=== PATIENT | female | born 1950 ===

== ENCOUNTER 2018-02-03 01:58 | Observation (INO) | payer MEDICARE, OTHER ==
[2017-12-29 08:21] LABS: PLATELET COUNT, AUTOMATED 256 K/uL (150-450)
--- NOTE | 2017-12-29 08:49 | EKG ---
FACILITY: [facility] PATIENT NAME: CLINT MARLOW : [id number] MR: [id number] V: [id number] EXAM DATE: ORDERING PHYSICIAN: MARYLOU WILLIAM TECHNOLOGIST: HAIELE Foley Reason : PRE-OP KNEE Blood Pressure : / mmHG Vent. Rate : 070 BPM Atrial Rate : 070 BPM P-R Int : 162 ms QRS Dur : 084 ms QT Int : 392 ms P-R-T Axes : 069 023 035 degrees QTc Int : 423 ms Normal sinus rhythm Normal ECG When compared with ECG of 25-OCT-2016 08:42, No significant change was found Confirmed by TOM STROUD ([id number]) on 12/29/2017 2:54:11 PM Referred By: STEWART Confirmed By:TOM STROUD
--- NOTE | 2018-01-29 15:19 | HISTORY AND PHYSICAL ---
DATE OF ADMISSION: February 03, 2018 IDENTIFICATION AND CHIEF COMPLAINT Melissa is a 67-year-old woman with chief complaint of right knee pain. HISTORY OF PRESENT ILLNESS Patient has a long-standing history of knee arthritis, progressively painful and debilitating, refractory to conservative care. Surgery is indicated to relieve symptoms after failure of nonoperative measures. PAST MEDICAL HISTORY 1. Hypothyroidism. 2. Hypertension. ALLERGIES She is allergic to NYQUIL. CURRENT MEDICATIONS 1. Levothyroxine 88 mcg p.o. q. day. 2. Losartan 25 mg p.o. q. day. 3. Vitamin D. PAST SURGICAL HISTORY Rotator cuff operation. FAMILY HISTORY Notable for mother with diabetes. SOCIAL HISTORY Negative for tobacco and alcohol use. REVIEW OF SYSTEMS Otherwise negative. PHYSICAL EXAMINATION GENERAL: This is a healthy female. HEENT: She is normocephalic, atraumatic. NECK: Supple. LUNGS: Clear. HEART: Regular. ABDOMEN: Soft. ORTHOPEDIC: The right knee has an effusion. Crepitus is noted. She is stiff at the end range. Ligament stability is good. Extensor function intact. Skin is in good condition. Calves nontender. Neurovascular function intact. LABORATORY DATA Radiographs demonstrate end-stage arthritis. ASSESSMENT Right knee end-stage degenerative joint disease, progressively painful and debilitating, refractory to conservative care. PLAN Per patient's request, will proceed with total knee arthroplasty. Concomitant injection of the left knee to mitigate symptoms to facilitate rehab will be performed at the same surgical setting. Nature of the procedure, risks, benefits, and the anticipated rehabilitative course reviewed. Risks of the procedure include, but are not limited to , major medical or anesthetic complication, infection, neurovascular injury, blood transfusion, stiffness, scarring, fracture, tendon rupture, instability, implant loosening, migration, or failure, persistent or recurrent pain, need for additional surgery, and other unforeseen. She understands and wishes to proceed. Signed permit is placed in the chart. No guarantees are given or implied. ROSALVA
[2018-02-02 14:04] LABS: INR 0.99
[2018-02-03] VITALS (16 sets, daily range): BP systolic 110–143; BP diastolic 63–83
[~2018-02-03] VITALS: Ht 170.2 cm; Wt 86.6 kg
[~2018-02-03 01:58] MED LIST: LEVO75TA73 PO; LOSA25TA52 PO; MV-M1TAB19 PO
[2018-02-03] MEDS ORDERED: ACETAMINOPHEN 500 MG TAB PO ONE (07:40)
[2018-02-03] MEDS ORDERED: fentaNYL CITR 100 MCG/2 ML AMP ONE (07:57)
[2018-02-03] MEDS ORDERED: PROPOFOL EMUL(*) 10MG/ML 20 ML 20 ML ONE (07:58)
[2018-02-03] MEDS ORDERED: LIDOCAINE MPF 1% 5 ML VIAL ONE (07:58)
[2018-02-03] MEDS ORDERED: ONDANSETRON 4 MG/2 ML VIAL ONE (07:58)
[2018-02-03] MEDS ORDERED: DEXAMETHASONE SOD 4 MG/ML VIAL ONE (07:58)
[2018-02-03] MEDS ORDERED: KETAMINE HCL 200 MG/20 ML MDV ONE (08:38)
[2018-02-03] MEDS ORDERED: BUPIVACAINE 0.5% INJ 50ML VIAL INFIL ONE ×2 (08:52→09:17)
[2018-02-03] MEDS ORDERED: TRIAMCINOLONE ONE (08:52)
[2018-02-03] MEDS ORDERED: TRANEXAMIC AC 1000 MG/10ML SDV 1,000 MG in DEXTROSE 5% 50 ML BAG 50 ML IV ONE (09:00)
[2018-02-03] MEDS ORDERED: ceFAZolin(*) 2GM/D5W 50ML 50 ML IVPB ONE (09:00)
[2018-02-03] MEDS ORDERED: NORMOSOL R SOLN(*) 1000 ML BAG 1,000 ML IV PRN ×2 (09:00→12:50)
[2018-02-03] MEDS ORDERED: LIDOCAINE/SOD BICARB 8.4% SYR ID ONE (09:00)
[2018-02-03] MEDS ORDERED: MIDAZOLAM 2 MG/2 ML VIAL IVP PRN (09:00)
[2018-02-03] MEDS ORDERED: FAMOTIDINE 20 MG TAB PO ONE (09:00)
[2018-02-03] MEDS ORDERED: cloNIDine EPIDUR INJ 100MCG/ML 40 MCG, ROPIVACAINE 0.5% 20 ML VIAL 25 ML, EPINEPHrine H... INJ ONE (09:00)
[2018-02-03] MEDS ORDERED: TRIAMCINOLONE ACE(*) 40 MG/ML 1 ML ONE (09:17)
[2018-02-03] MEDS ORDERED: VANCOMYCIN 1 GM VIAL ONE (09:48)
[2018-02-03] MEDS ORDERED: ACETAMINOPHEN 325 MG TAB PO PRN (12:50)
[2018-02-03] MEDS ORDERED: ZOLPIDEM TARTRATE 5 MG TAB PO PRN (12:50)
[2018-02-03] MEDS ORDERED: PROMETHAZINE 25 MG/ML 1 ML AMP IVP PRN (12:50)
[2018-02-03] MEDS ORDERED: MAGNESIUM HYDROXIDE* 30ML UDCP PO PRN (12:50)
[2018-02-03] MEDS ORDERED: FLUSH 10 ML SYR IVP PRN (12:50)
[2018-02-03] MEDS ORDERED: diphenhydrAMINE 25 MG CAP PO PRN (12:50)
[2018-02-03] MEDS ORDERED: BENZOCAINE/MENTHOL 1 EACH LOZG PO PRN (12:50)
[2018-02-03] MEDS ORDERED: BISACODYL 10 MG SUPP PR PRN (12:50)
[2018-02-03] MEDS ORDERED: diphenhydrAMINE 50 MG/ML VIAL IVP PRN (12:50)
[2018-02-03] MEDS: APAP/HYDROCODONE 325/7.5 TAB PO PRN ×3 (14:07→22:53)
--- NOTE | 2018-02-03 14:10 | RADIOLOGY IMAGING REPORT ---
FACILITY: [facility] PATIENT NAME: Melissa Fisher : 1950 MR: [id number] V: [id number] EXAM DATE: ORDERING PHYSICIAN: MARYLOU WILLIAM TECHNOLOGIST: Location: [facility] [place] Patient: Melissa Fisher : 1950 Visit/Account:[id number] Date of Sevice: 02/03/2018 KNEE LIMITED RIGHT COMPARISON: None. HISTORY: POST R TKA TECHNIQUE: 2 views of the right knee FINDINGS: BONES: Hardware components of a right total knee arthroplasty are present in anatomic alignment with out evidence of acute fracture or other immediate postoperative complication. SOFT TISSUES: Soft tissue gas related to recent surgery. Skin syed anteriorly. EFFUSION: None suggested. OTHER: Negative. IMPRESSION: Right total knee arthroplasty with recent postoperative changes, without appreciable complications. Report Dictated By: Atif Feliz at 02/03/2018 2:05 PM Report E-Signed By: Atif Feliz at 02/03/2018 2:05 PM WSN:[email or web address]
--- NOTE | 2018-02-03 14:18 | LEVENE TKA ---
EVENT DATE: February 03, 2018 SURGEON: Romaine Chavira MD ANESTHESIOLOGIST: [*] ANESTHESIA: General plus spinal. STUDENT SERVICES DIRECTOR: Chang Morin PA-C PREOPERATIVE DIAGNOSIS Right knee degenerative joint disease. POSTOPERATIVE DIAGNOSIS Right knee degenerative joint disease. PROCEDURE PERFORMED Right total knee arthroplasty. ESTIMATED BLOOD LOSS Minimal. DRAINS None.. SPECIMENS None. COMPLICATIONS None apparent TOURNIQUET TIME 44 minutes. IMPLANTS USED Ladan Triathlon knee system, a size 5 PS femur, a 4 standard tibial baseplate, 33 mm universal symmetric all polyethylene patella button, 13 mm PS tibial tray liner polyethylene X3.. INDICATIONS Melissa is a 67-woman with intractable pain related to end-stage knee arthritis. Surgery is indicated to relieve symptoms after failure of nonoperative measures. DESCRIPTION OF PROCEDURE The patient was taken to the operating room and placed supine on the operating table. A spinal block was administered by the anesthesiologist. General anesthesia was induced. Antibiotics were administered IV. The right lower extremity was prepped and draped in the usual sterile fashion for knee arthroplasty. The limb was exsanguinated with an Esmarch bandage. The tourniquet was inflated to 275 mmHg. A midline longitudinal incision was made and carried down through the skin and subcutaneous tissue to the extensor mechanism. A full-thickness flap was developed far enough medially to allow medial parapatellar arthrotomy to be performed. The patella was everted. The knee was brought into a flexed position. The fat pad, anterior horns of the menisci and cruciate ligaments were debrided. Subperiosteal capsule release was performed 1 cm circumferentially around the upper plateau to start to balance the knee. A step drill was used to enter the distal femur. A 10-inch long alignment guide was used to engage the isthmus. Cut was set for 6 degrees of valgus relative to anatomic axis. A 10 mm resection block was applied and pinned. Cut was made with an oscillating saw. The patient had significant lateral femoral condyle hypoplasia so the transepicondylar axis was marked and used to determine appropriate rotational alignment. Posterior condyles cannot be used in this circumstance. The size 5 was optimal without risk of notching. Four-in-one cutting block was applied. Anterior, posterior, posterior chamfer and anterior chamfer cuts were made respectively. A PS block was applied and centered mediolateral and the bone was removed from the box. The trial femur had adequate fit. Attention was turned to tibial preparation. The extramedullary guide was applied and positioned for varus, valgus, posterior slope and rotation. This was set to resect 2 mm from the deficient lateral tibial plateau and dropped down another 1 to 2 millimeters to ensure an adequate cut. The block was pinned. Extramedullary alignment check was made and the cut was made with an oscillating saw. All osteophytes were removed. In order to balance the gaps sufficiently, the popliteus is recessed off of its hiatal attachment on the femur and the IT bands released subperiosteally off Gerdy's tubercle and a bit of the posterior lateral capsule stripped with a Maldonado off the back of the femur and this creates balanced and symmetric gaps. A size 4 baseplate provides optimum bony coverage without soft tissue overhang. This was inserted along with a trial liner and trial femur and the knee was brought to extension. The patella was taken from a starting thickness of 22 to a residual of 14 with a patellar clamp and an oscillating saw. A 33 provided optimal bony coverage without soft tissue overhang. The lug holes were drilled. The patella tracts nicely with a no-touch technique. Final tibial preparation consisted of ensuring appropriate rotational and translational position of the component. The box was reamed and the fin was punched. All bony surfaces were lavaged. A mix of polymethylmethacrylate was made and the components were cemented in a single stage. When the cement was fully polymerized, the tourniquet was deflated and hemostasis was assured. The wounds were copiously lavaged. The 13 fills up the gap ideally, allowing the knee to drop to full extension without hyperextension, providing optimal soft tissue tension and stability. The tray was lavaged and dried and the actual liner was locked into the baseplate. The joint was reduced and the arthrotomy was closed in flexion with #2 Ethibond, dermis with 3-0 Vicryl and the skin with surgical syed. Xeroform was applied followed by a dry, sterile dressing and a compression wrap. The patient was awakened from the anesthesia and taken to the recovery room in stable condition, having tolerated the procedure well. Plan is for standard TKA rehab protocol. ROSALVA
--- NOTE | 2018-02-03 14:26 | Hospitalist Consultation ---
History of Present Illness Requesting Physician Dr. Chavira Reason for Consult Medical Management Chief Complaint s/p right total knee replacement History of Present Illness She was admitted s/p right total knee replacement. It is reported the surgery went well and without complication. History Problems: (1) Hypothyroidism Status: Chronic (2) Hypertension Status: Chronic Home Meds Reported Medications Mv-Mn/Iron/Fa/Herbal Cmplx#190 (VITAMIN D3 COMPLETE CAPLET) 1 Each Tablet, 1 EACH PO DAILY 01/26/18 Losartan Potassium (LOSARTAN POTASSIUM) 25 Mg Tablet, 25 MG PO QDAY 01/26/18 Levothyroxine Sodium (LEVOTHYROXINE SODIUM) 75 Mcg Tablet, 75 MCG PO QDAY, TAB 01/26/18 Allergies: Coded Allergies: dextromethorphan (Verified Allergy, Mild, INTERNAL ITCH, 01/26/18) doxylamine (Verified Allergy, Mild, INTERNAL ITCH, 01/26/18) pseudoephedrine (Verified Allergy, Mild, INTERNAL ITCH, 01/26/18) Uncoded Allergies: NARCOTICS (Adverse Reaction, Mild, STOMACH ISSUES, 01/26/18) Patient History: FH: Parkinson's disease FATHER FH: diabetes mellitus MOTHER Hx Smoking: Yes Smoking Status: Former Smoker When Quit Tobacco?: SMOKED FOR 5 YRS, QUIT IN Caffeine Intake: Coffee Caffeine/Cups Per Day: 3 Hx Alcohol Use: Yes Hx Substance Use Disorder: No Social Drug Use: Never Review of Systems All Systems Reviewed/Normal: Yes, Except as Noted Exam Vital Signs Vital Signs Date Time Temp Pulse Resp B/P (MAP) Pulse Ox O2 Delivery O2 Flow Rate FiO2 02/03/18 13:40 87 12 133/79 (97) 97 Nasal Cannula 1.0 02/03/18 07:41 97.2 General Appearance: Alert, Awake, No Acute Distress, Afebrile Neuro: No Gross deficits Cardiovascular: Regular Rate and Rhythm Respiratory: No Respiratory Distress, Clear to Auscultation GI: Abd Soft and Non-Tender Psych: Alert & Oriented X3, Appropriate Mood & Affect Assessment and Plan Problems: (1) Status post total right knee replacement Status: Acute Assessment & Plan: She will be placed on Aspirin for DVT prophylaxis. She has no history of DVT or PE. She does report sensitivity to NSAIDs with her stomach. She will be started on Protonix to help with ASA. (2) Hypertension Status: Chronic Assessment & Plan: She is on chronic treatment with Losartan. This has been restarted with hold parameters. (3) Hypothyroidism Status: Chronic Assessment & Plan: She is on chronic treatment with Levothyroxine. Venous Thromboembolism Antithrombotics Is Pt On Any Antithrombotics?: No Problem Qualifiers (1) Hypertension: Hypertension type: essential hypertension Qualified Codes: I10 - Essential (primary) hypertension IAN VARGAS DESKTOP SUPPORT TECHNICIAN Feb 03, 2018 14:26
[2018-02-03] MEDS ORDERED: NS(*) 0.9% 250 ML BAG 250 ML IV SCH (15:15)
[2018-02-03] MEDS: CELECOXIB 200 MG CAP PO SCH (17:20)
[2018-02-03] MEDS: ceFAZolin(*) 1 GM VIAL 1 GM in NS(*) 0.9% 100 ML ADDVANT BAG 100 ML IVPB SCH (17:25)
[2018-02-03] MEDS: DIAZEPAM 5 MG TAB PO PRN (20:51)
[2018-02-04] MEDS: ceFAZolin(*) 1 GM VIAL 1 GM in NS(*) 0.9% 100 ML ADDVANT BAG 100 ML IVPB SCH ×2 (01:52→09:51)
[2018-02-04 01:55] VITALS: BP 105/66
[2018-02-04] MEDS: APAP/HYDROCODONE 325/7.5 TAB PO PRN ×4 (03:11→23:37)
[2018-02-04] MEDS ORDERED: CELECOXIB 200 MG CAP PO ONE ×2 (05:20→07:25)
[2018-02-04] MEDS ORDERED: PREGABALIN 75 MG CAPSULE PO ONE (05:20)
[2018-02-04] MEDS: DIAZEPAM 5 MG TAB PO PRN ×3 (06:08→21:45)
[2018-02-04] MEDS: LEVOTHYROXINE SOD 0.075 MG TAB PO SCH (06:08)
[2018-02-04 07:16] VITALS: BP 101/65
[2018-02-04] MEDS ORDERED: PREGABALIN 150 MG CAPSULE PO ONE (07:25)
[2018-02-04] MEDS: PANTOPRAZOLE SOD 40 MG TABEC PO SCH (08:28)
[2018-02-04] MEDS: CELECOXIB 200 MG CAP PO SCH ×2 (08:28→17:00)
[2018-02-04] MEDS: LOSARTAN POTASSIUM 50 MG TAB PO SCH (08:28)
[2018-02-04] MEDS: ASPIRIN 325 MG TAB PO SCH (08:28)
[2018-02-04 11:08] VITALS: BP 120/64
--- NOTE | 2018-02-04 11:10 | Hospitalist Progress Note ---
Subjective Progress Notes Subjective She has no complaints this morning. She had no acute events overnight. Patient Complains of: Cardiovascular: No: Chest Pain Respiratory: No: Shortness of Breath Physical Exam Vital Signs Date Time Temp Pulse Resp B/P (MAP) Pulse Ox O2 Delivery O2 Flow Rate FiO2 02/04/18 07:30 90 Room Air 0.5 02/04/18 07:16 98.1 89 16 101/65 (77) Intake and Output 02/04/18 07:00 Intake Total 3109 ml Balance 3109 ml Intake Oral 699 ml IV Total 2110 ml Blood Product 300 ml # Voids 2 General Appearance: Alert, Awake, No Acute Distress, Afebrile Neuro: No Gross deficits Cardiovascular: Regular Rate and Rhythm Respiratory: No Respiratory Distress, Clear to Auscultation Psych: Alert & Oriented X3, Appropriate Mood & Affect Assessment and Plan Problems: (1) Status post total right knee replacement Status: Acute Assessment & Plan: She will be placed on Aspirin for DVT prophylaxis. She has no history of DVT or PE. She does report sensitivity to NSAIDs with her stomach. She will be started on Protonix to help with ASA. (2) Hypertension Status: Chronic Assessment & Plan: She is on chronic treatment with Losartan. This has been restarted with hold parameters. (3) Hypothyroidism Status: Chronic Assessment & Plan: She is on chronic treatment with Levothyroxine. Exam Sepsis Risk: No Definite Risk Problem Qualifiers (1) Hypertension: Hypertension type: essential hypertension Qualified Codes: I10 - Essential (primary) hypertension IAN VARGASP Feb 04, 2018 11:10
[2018-02-04 13:18] VITALS: Ht 170.2 cm; Wt 86.6 kg
[2018-02-04 14:32] VITALS: BP 116/69
[2018-02-04 19:10] VITALS: BP 119/75
[2018-02-04 23:37] VITALS: BP 122/65
[2018-02-05] MEDS: APAP/HYDROCODONE 325/7.5 TAB PO PRN (03:51)
[2018-02-05 03:52] VITALS: BP 109/61
[2018-02-05] MEDS: LEVOTHYROXINE SOD 0.075 MG TAB PO SCH (05:29)
[2018-02-05] MEDS ORDERED: HYDR-654 PO (07:30)
[2018-02-05 08:05] VITALS: BP 124/79
[2018-02-05] MEDS: LOSARTAN POTASSIUM 50 MG TAB PO SCH (08:32)
[2018-02-05] MEDS: ASPIRIN 325 MG TAB PO SCH (08:32)
[2018-02-05] MEDS: PANTOPRAZOLE SOD 40 MG TABEC PO SCH (08:32)
[2018-02-05] MEDS: CELECOXIB 200 MG CAP PO SCH (08:32)
[2018-02-05] MEDS ORDERED: ASPI-757 PO (08:57)
--- NOTE | 2018-02-05 10:02 | Hospitalist Progress Note ---
Subjective Progress Notes Subjective She has no complaints this morning. She had no acute events overnight. Patient Complains of: Cardiovascular: No: Chest Pain Respiratory: No: Shortness of Breath Physical Exam Vital Signs Date Time Temp Pulse Resp B/P (MAP) Pulse Ox O2 Delivery O2 Flow Rate FiO2 02/05/18 08:12 91 Room Air 02/05/18 08:05 97.7 72 16 124/79 (94) 0.5 Intake and Output 02/05/18 07:00 Intake Total 1662 ml Balance 1662 ml Intake Oral 1562 ml IV Total 100 ml # Voids 5 General Appearance: Alert, Awake, No Acute Distress, Afebrile Neuro: No Gross deficits Cardiovascular: Regular Rate and Rhythm Respiratory: No Respiratory Distress, Clear to Auscultation Psych: Alert & Oriented X3, Appropriate Mood & Affect Assessment and Plan Problems: (1) Status post total right knee replacement Status: Acute Assessment & Plan: She will be placed on Aspirin for DVT prophylaxis. She has no history of DVT or PE. She does report sensitivity to NSAIDs with her stomach. She will be started on Protonix to help with ASA. (2) Hypertension Status: Chronic Assessment & Plan: She is on chronic treatment with Losartan. This has been restarted with hold parameters. (3) Hypothyroidism Status: Chronic Assessment & Plan: She is on chronic treatment with Levothyroxine. Exam Sepsis Risk: No Definite Risk Problem Qualifiers (1) Hypertension: Hypertension type: essential hypertension Qualified Codes: I10 - Essential (primary) hypertension IAN VARGAS MEDIA DEVELOPER Feb 05, 2018 10:02
== END 2018-02-05 07:35 | disposition home or self-care (01) ==
LOC: OR 01:58 → MED 13:40
PROVIDERS: ADMIT Orthopaedic Surgery; ATTEND Orthopaedic Surgery
DX: M17.11 Unilateral primary osteoarthritis, right knee (principal); I10 Essential (primary) hypertension; E03.9 Hypothyroidism, unspecified
CPT/HCPCS: 27447; 36415; 73560; 81001; 84443; 85025; 85610; 86850; 86900; 86901; 93005; 97116; 97161; 97530; A9270; C1713; C1776; G0378; J0171; J0690; J0735; J1100; J1885; J2001; J2250; J2405; J2704; J2795; J3010; J3301; J3370; J3490; J7050; J7060; 82040; 82247; 82310; 82374; 82435; 82565; 82947; 84075; 84132; 84155; 84295; 84450; 84460; 84520

== ENCOUNTER → 2018-02-09 | Outpatient (CLI) | payer MEDICARE, OTHER ==
[2018-02-04 13:18] VITALS: BMI 29.9
[~2018-02-09] MED LIST changes: +ASPI-757 PO; +HYDR-654 PO
--- NOTE | 2018-02-09 18:40 | RADIOLOGY IMAGING REPORT ---
FACILITY: [facility] - [place] PATIENT NAME: Melissa Fisher : 1950 MR: [id number] V: [id number] EXAM DATE: ORDERING PHYSICIAN: MARYLOU WILLIAM TECHNOLOGIST: Location: [facility] [place] Patient: Melissa Fisher : 1950 Visit/Account:[id number] Date of Sevice: 02/09/2018 Venous Doppler ultrasound right lower extremity Indication: Right leg swelling and calf pain. Post knee arthroplasty.. Comparison: None Available Findings: Duplex Doppler and color flow imaging was performed. The common femoral, femoral, and popl iteal veins are all patent and compressible with normal Doppler wave forms. There are normal respons es to augmentation. The posterior tibial and peroneal veins are patent in the calf. The proximal greater saphenous vein i s also normal. Subcutaneous tissues are unremarkable. IMPRESSION: 1. No evidence of deep venous thrombosis of the right lower extremity. Report Dictated By: Conner Hall at 02/09/2018 6:36 PM Report E-Signed By: Conner Hall at 02/09/2018 6:37 PM WSN:[email or web address]
== END ==
LOC: US 17:34
PROVIDERS: ATTEND Orthopaedic Surgery
DX: M79.604 Pain in right leg (principal); M79.89 Other specified soft tissue disorders

== ENCOUNTER → 2018-05-19 | Outpatient (CLI) | payer MEDICARE, OTHER ==
[2018-02-04 13:18] VITALS: BMI 29.9
[~2018-05-19] MED LIST changes: -LOSA25TA52 PO; +LOSA25TA57 PO
--- NOTE | 2018-05-22 09:44 | RADIOLOGY IMAGING REPORT ---
FACILITY: [facility] [place] PATIENT NAME: CLINT MARLOW : [id number] MR: [id number] V: [id number] EXAM DATE: [id number] ORDERING PHYSICIAN: BO BAIRES TECHNOLOGIST: Kiera Regan PROCEDURE:BILATERAL DIGITAL SCREENING MAMMOGRAM WITH CAD ASSISTED INTERPRETATION & 3D TOMOSYNTHESIS COMPARISON:Baseline mammogram. INDICATIONS:screening FINDINGS: Scattered fibroglandular densities are seen throughout the breasts. There is a small asymmetry in the upper portion of the Left breast on the Left MLO view in the middle 1/3 for which Spot compression view is recommended. DIAGNOSTIC CATEGORY 0--INCOMPLETE: NEED ADDITIONAL IMAGING EVALUATION. RECOMMENDATIONS: ADDITIONAL MAMMOGRAPHIC VIEWS REQUIRED: LEFT BREAST. IMPRESSION: BIRADS 0: Incomplete. Additional view of the Left breast is recommended. Dictated by: Patricia Russ M.D. on 05/20/2018 at 17:07 Transcribed by: ANTONINA on 05/21/2018 at 10:19 Approved by: Patricia Russ M.D. on 05/22/2018 at 9:43 [facility]
== END ==
LOC: MAMO 00:38
PROVIDERS: ATTEND Family Medicine
DX: R92.2 Inconclusive mammogram (principal)
CPT/HCPCS: 77063; 77067

== ENCOUNTER → 2018-05-19 | Outpatient (CLI) | payer MEDICARE, OTHER ==
[2018-02-04 13:18] VITALS: BMI 29.9
== END ==
LOC: LAB 07:35
PROVIDERS: ATTEND Anesthesiology
DX: Z01.812 Encounter for preprocedural laboratory examination (principal)
CPT/HCPCS: 81001

== ENCOUNTER → 2018-06-01 | Outpatient (CLI) | payer MEDICARE, OTHER ==
[2018-02-04 13:18] VITALS: BMI 29.9
--- NOTE | 2018-06-03 13:37 | RADIOLOGY IMAGING REPORT ---
FACILITY: [facility] PATIENT NAME: CLINT MARLOW : [id number] MR: [id number] V: [id number] EXAM DATE: [id number] ORDERING PHYSICIAN: BO BAIRES TECHNOLOGIST: Kiera Regan PROCEDURE:LEFT DIGITAL DIAGNOSTIC MAMMOGRAM WITH CAD ASSISTED INTERPRETATION & 3D TOMOSYNTHESIS COMPARISON:Prior mammograms 05/19/18. INDICATIONS:further evaluation FINDINGS: The patient returned for Spot compression view in the Left MLO projection. The small asymmetry in the upper portion of the Left breast in the middle 1/3 on the recent Left MLO view appeared compressible and apparently represented a summation shadow. DIAGNOSTIC CATEGORY 2--BENIGN FINDING. RECOMMENDATIONS: ROUTINE MAMMOGRAM AND CLINICAL EVALUATION. IMPRESSION: BIRADS 2: Benign finding. No significant abnormality is seen. Dictated by: Patricia Russ M.D. on 06/01/2018 at 17:20 Transcribed by: ANTONINA on 06/02/2018 at 9:02 Approved by: Patricia Russ M.D. on 06/03/2018 at 13:36 [facility]
== END ==
LOC: MAMO 00:35
PROVIDERS: ATTEND Family Medicine
DX: Z12.31 Encounter for screening mammogram for malignant neoplasm of breast (principal)
CPT/HCPCS: 77061; 77065

== ENCOUNTER 2018-06-23 01:46 | Observation (INO) | payer MEDICARE, OTHER ==
--- NOTE | 2018-06-22 13:17 | LEVENE H&P ---
DATE OF ADMISSION: June 23, 2018 IDENTIFICATION/CHIEF COMPLAINT The patient is a 67-year-old woman with a chief complaint of left knee pain. HISTORY OF PRESENT ILLNESS Patient has a history of progressive end-stage left knee arthroscopy which is debilitating and refractory to conservative care. Surgery is indicated to relieve symptoms after failure of nonoperative measures. PAST MEDICAL HISTORY 1. Hypothyroidism. 2. Hypertension, controlled on medication. PAST SURGICAL HISTORY 1. Contralateral knee replacement. 2. Rotator cuff surgery. ALLERGIES NyQuil. CURRENT MEDICATIONS 1. Levothyroxine 75 mcg daily. 2. Losartan 25 mg p.o. every day. 3. Vitamin D 4000 unit p.o. every day. FAMILY HISTORY Notable for mother with diabetes. SOCIAL HISTORY Negative for tobacco and alcohol use. REVIEW OF SYSTEMS Negative. PHYSICAL EXAMINATION GENERAL: This is a healthy female. HEENT: Normocephalic, atraumatic. NECK: Supple. LUNGS: Clear. HEART: Regular. ABDOMEN: Soft. ORTHOPEDIC EXAMINATION Left knee has crepitus. Effusion is present. Extensor function is intact. Gross stability is good. She is stiffened on range. Vascular function is intact. Radiographs demonstrate end-stage knee arthritis. ASSESSMENT Left knee end-stage degenerative disc disease, progressively painful and debilitating and refractory to conservative care. PLAN Per patient's request, we will proceed with total knee arthroplasty. The nature of the procedure, the risks, benefits, the anticipated rehabilitative course were reviewed. Risks include but are not limited to , major medical or anesthetic complication, infection, neurovascular injury, blood transfusion, stiffness, scarring, fracture, tendon rupture, instability, implant loosening, migration or failure, persistent or recurrent pain or symptoms, need for additional surgery and other unforeseen. She understands and wishes to proceed. A signed permit is placed in the chart. No guarantees are given or implied. [facility]
[2018-06-22 14:38] LABS: INR 0.99
[~2018-06-23] VITALS: Ht 170.2 cm; Wt 85.7 kg
[2018-06-23] VITALS (18 sets, daily range): BP systolic 102–133; BP diastolic 57–79
[~2018-06-23 01:46] MED LIST changes: +ACETAMINOPHEN 500 MG TAB PO ONE; +CELECOXIB 200 MG CAP PO ONE; +PREGABALIN 150 MG CAPSULE PO ONE; +ceFAZolin(*) 2GM/D5W 50ML 50 ML IVPB ONE
[2018-06-23] MEDS ORDERED: VANCOMYCIN 1 GM VIAL ONE (07:22)
[2018-06-23] MEDS ORDERED: TRANEXAMIC AC 1000 MG/10ML SDV 1,000 MG in DEXTROSE 5% 50 ML BAG 50 ML IV ONE (07:30)
[2018-06-23] MEDS ORDERED: LIDOCAINE/SOD BICARB 8.4% SYR ID ONE (07:30)
[2018-06-23] MEDS ORDERED: ROPIVACAINE/EPI/CLONIDINE/KET 50 ML SYRINGE INJ ONE (07:30)
[2018-06-23] MEDS ORDERED: ACETAMINOPHEN 500 MG TAB PO ONE (07:30)
[2018-06-23] MEDS ORDERED: NORMOSOL R SOLN(*) 1000 ML BAG 1,000 ML IV PRN ×2 (07:30→10:40)
[2018-06-23] MEDS ORDERED: CELECOXIB 200 MG CAP PO ONE (07:30)
[2018-06-23] MEDS ORDERED: ceFAZolin(*) 2GM/D5W 50ML 50 ML IVPB ONE (07:30)
[2018-06-23] MEDS ORDERED: PREGABALIN 150 MG CAPSULE PO ONE (07:30)
[2018-06-23] MEDS ORDERED: FAMOTIDINE 20 MG TAB PO ONE (07:30)
[2018-06-23] MEDS ORDERED: LIDOCAINE MPF 1% 5 ML VIAL ONE (07:44)
[2018-06-23] MEDS ORDERED: fentaNYL CITR 100 MCG/2 ML AMP ONE (07:44)
[2018-06-23] MEDS ORDERED: ONDANSETRON 4 MG/2 ML VIAL ONE (07:44)
[2018-06-23] MEDS ORDERED: PROPOFOL EMUL(*) 10MG/ML 20 ML 20 ML ONE (07:44)
[2018-06-23] MEDS ORDERED: DEXAMETHASONE SOD PHOS 10MG/ML ONE (07:44)
[2018-06-23] MEDS ORDERED: KETAMINE HCL-NS 50 MG/5 ML SYR ONE (07:45)
[2018-06-23] MEDS: MIDAZOLAM 2 MG/2 ML VIAL IVP PRN ×2 (08:09→08:13)
[2018-06-23] MEDS ORDERED: PHENYLEPHRINE 10 MG/1 ML VIAL ONE (08:36)
[2018-06-23] MEDS ORDERED: diphenhydrAMINE 50 MG/ML VIAL IVP PRN (10:40)
[2018-06-23] MEDS ORDERED: BENZOCAINE/MENTHOL 1 EACH LOZG PO PRN (10:40)
[2018-06-23] MEDS ORDERED: BISACODYL 10 MG SUPP PR PRN (10:40)
[2018-06-23] MEDS ORDERED: MAGNESIUM HYDROXIDE* 30ML UDCP PO PRN (10:40)
[2018-06-23] MEDS ORDERED: diphenhydrAMINE 25 MG CAP PO PRN (10:40)
[2018-06-23] MEDS ORDERED: FLUSH 10 ML SYR IVP PRN (10:40)
[2018-06-23] MEDS ORDERED: ACETAMINOPHEN 325 MG TAB PO PRN (10:40)
[2018-06-23] MEDS ORDERED: ZOLPIDEM TARTRATE 5 MG TAB PO PRN (10:40)
--- NOTE | 2018-06-23 10:41 | OPERATIVE REPORT 1 ---
EVENT DATE: June 23, 2018 SURGEON: Romaine Chavira MD ANESTHESIOLOGIST: Arpan Leon MD ANESTHESIA: General plus spinal. SHIPPER: Marco A Morin PA-C PREOPERATIVE DIAGNOSIS Left knee degenerative joint disease. POSTOPERATIVE DIAGNOSIS Left knee degenerative joint disease. PROCEDURE PERFORMED Left total knee arthroplasty. ESTIMATED BLOOD LOSS Minimal. DRAINS None. SPECIMENS None. COMPLICATIONS None apparent. TOURNIQUET TIME 46 minutes. IMPLANTS USED Ladan Triathlon knee system, a 4 left PS femur, a 4 standard tibial baseplate, a 33 mm universal symmetric all polyethylene patella button, 11 mm thickness PS tibial tray liner, polyethylene X3. INDICATIONS Melissa is 68-year-old woman with intractable pain and disability related to end-stage knee arthritis. Surgery is indicated to relieve symptoms after failure of nonoperative measures. DESCRIPTION OF PROCEDURE The patient was taken to the operating room and placed supine on the operating table. Spinal block was administered by the anesthesiologist. General anesthesia was induced. Antibiotics and TXA were administered IV. The left lower extremity was prepped and draped in the usual sterile fashion for knee arthroplasty. The limb was exsanguinated with an Esmarch bandage. The tourniquet was inflated to 275 mmHg. A midline longitudinal incision was made incorporating a small, slightly irregular old incision near the tibial tubercle. This was carried down through the skin and scar tissue to the extensor mechanism. A full-thickness flap was developed far enough medially to allow medial parapatellar arthrotomy to be performed. The patella was everted. The knee was brought into a flexed position. The fat pad, anterior horns of the menisci and cruciate ligaments were debrided. Subperiosteal capsular release was performed circumferentially around the upper plateau for 1 cm to start to balance the knee. A step drill was used to enter the distal femur. A 10-inch long alignment guide was used to engage the isthmus. Cut was set for 6 degrees of valgus relative to the anatomic axis. A 10 mm resection block was applied and pinned. Cut was made with an oscillating saw. 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 Epicondylar axis and Camas's line were identified and marked for appropriate rotational alignment. Size 4 is optimal without risk of notching. The four-in-one cutting block was applied. Anterior, posterior, posterior chamfer and anterior chamfer cuts were made respectively. A PS block was applied and centered mediolateral and the bone was resected from the box. The trial femur has nice [id number] fit. Attention was turned to tibial preparation. The extramedullary guide was applied and positioned for varus, valgus, posterior slope and rotation. This was set to resect 10 from the relatively deficient lateral tibial plateau. It was dropped down another millimeter or so to ensure an adequate cut. The block was pinned, extramedullary alignment check was made and the cut was made with an oscillating saw. After osteophyte removal, release of the IT band off Gerdy's tubercle subperiosteally and resection of the popliteus out of its hiatus on the femur are performed to balance the knee and balance the gaps. This is sufficient subsequently. The trial baseplate, size 4, is inserted along with a trial liner and trial femur. The knee was brought to extension. The patella was taken from a starting thickness of 24 to a residual of 14 with a patellar clamp and an oscillating saw. The 33 provides optimal bony coverage without soft tissue overhang. Lug holes were drilled. Patella tracking is assessed and even with the components appropriately rotationally aligned, tends to sublux laterally. This is because the tibial tubercle is significantly laterally displaced on her tibia relative to normal position. Inside-out lateral release. Electrocautery is performed to optimize patellar tracking. Final tibial preparation consisted of ensuring appropriate rotational and translational position of the tibial component. The box was reamed and the fin was punched. Surfaces were lavaged. A mix of polymethylmethacrylate was made and the components were cemented in a single stage. Once the cement was fully polymerized, the tourniquet was deflated and hemostasis was assured. The wounds were copiously lavaged. 11 PS tibial tray liner fills up the gap ideally, allowing the knee to drop to full extension without hyperextension, providing optimal soft tissue tension and stability. The tray was lavaged and dried. The liner was locked into the baseplate. Joint was reduced. The arthrotomy was closed in flexion with #2 Ethibond, subcutaneous tissue with 3-0 Vicryl and the skin with Zip-tie closure. Xeroform was applied followed by a dry, sterile dressing and a compression wrap. The patient was awakened from the anesthesia and taken to the recovery room in stable condition, having tolerated the procedure well. Plan is for standard TKA rehab protocol. ROSALVA
--- NOTE | 2018-06-23 11:21 | RADIOLOGY IMAGING REPORT ---
FACILITY: [facility] PATIENT NAME: Melissa Fisher : 1950 MR: [id number] V: [id number] EXAM DATE: ORDERING PHYSICIAN: MARYLOU WILLIAM TECHNOLOGIST: Location: Patient: Melissa Fisher : 1950 Visit/Account:[id number] Date of Sevice: 06/23/2018 Left knee Indication: Total knee arthroplasty Comparison: Contralateral side from February 03 Findings: Two views history left total knee arthroplasty with anatomic alignment. Expected soft tissue changes . IMPRESSION: 1. Appropriate appearance status post left total knee arthroplasty. Report Dictated By: Mario Gale MD at 06/23/2018 11:16 AM Report E-Signed By: Mario Gale MD at 06/23/2018 11:17 AM WSN:[email or web address]
--- NOTE | 2018-06-23 12:07 | Hospitalist Consultation ---
History of Present Illness Requesting Physician Dr. Chavira Reason for Consult Medical Management Chief Complaint s/p left knee replacement History of Present Illness She was admitted s/p left knee replacement. It is reported the surgery went well and without complication. History Problems: (1) Hypertension Status: Chronic (2) Hypothyroidism Status: Chronic Home Meds Reported Medications Losartan Potassium (LOSARTAN POTASSIUM) 25 Mg Tablet, 25 MG PO QDAY 01/26/18 Levothyroxine Sodium (LEVOTHYROXINE SODIUM) 75 Mcg Tablet, 75 MCG PO QDAY, TAB 01/26/18 Allergies: Coded Allergies: dextromethorphan (Verified Allergy, Mild, INTERNAL ITCH, 01/26/18) doxylamine (Verified Allergy, Mild, INTERNAL ITCH, 01/26/18) pseudoephedrine (Verified Allergy, Mild, INTERNAL ITCH, 01/26/18) Uncoded Allergies: NARCOTICS (Adverse Reaction, Mild, STOMACH ISSUES, 01/26/18) Patient History: FH: Parkinson's disease FATHER, , Age:89 FH: diabetes mellitus MOTHER, , Age:84 Hx Smoking: Yes (QUIT FOR 10 YEARS ) Smoking Status: Former Smoker Caffeine Intake: Coffee Caffeine/Cups Per Day: 3 Hx Alcohol Use: Yes Hx Substance Use Disorder: No Social Drug Use: Never Review of Systems All Systems Reviewed/Normal: Yes, Except as Noted Exam Vital Signs Vital Signs Date Time Temp Pulse Resp B/P (MAP) Pulse Ox O2 Delivery O2 Flow Rate FiO2 06/23/18 11:39 97 Nasal Cannula 3.0 06/23/18 11:32 87 12 06/23/18 11:32 96.6 117/77 (90) General Appearance: Alert, Awake, No Acute Distress, Afebrile Neuro: No Gross deficits Cardiovascular: Regular Rate and Rhythm Respiratory: No Respiratory Distress, Clear to Auscultation Psych: Alert & Oriented X3, Appropriate Mood & Affect Assessment and Plan Problems: (1) Status post left knee replacement Status: Acute Assessment & Plan: Followed by Dr. Chavira. She will be placed on Aspirin for DVT prophylaxis. She has no history of DVT or PE. (2) Hypertension Status: Chronic Assessment & Plan: She is on chronic treatment with Losartan. This has been restarted with hold parameters. (3) Hypothyroidism Status: Chronic Assessment & Plan: She is on chronic treatment with Levothyroxine. Venous Thromboembolism Antithrombotics Is Pt On Any Antithrombotics?: No Problem Qualifiers (1) Hypertension: Hypertension type: essential hypertension Qualified Codes: I10 - Essential (primary) hypertension IAN VARGASP Jun 23, 2018 12:07
[2018-06-23] MEDS: APAP/HYDROCODONE 325/7.5 TAB PO PRN ×3 (12:24→21:09)
[2018-06-23] MEDS: PROMETHAZINE 25 MG/ML 1 ML AMP IVP PRN ×2 (12:24→21:08)
--- NOTE | 2018-06-23 12:42 | NUR ---
Physical Therapy Impression Pt requires CGA/Min assist to ensure safety with scooting at edge of bed. Pt somewhat impulsive and not yet very alert. Pt would benefit from waiting a period of time before attempting to stand for pivot to commode. Pt returned to supine and was fit with CPM unit with instruction provided to both pt and CG to advance flexion as tolerated. Physical Therapy Goals 1. Pt to be CGA/Min assist for supine<>Sit trnsfrs 2. Pt to be SBA/CGA for sit to/from stand transfers 3. Pt to ambulate x 100' with FWW and SBA/Modified indep 4. Pt to hue up/down 4 steps x 2 reps with rail and CGA/Min assist. Patient's Goals
[2018-06-23] MEDS: DIAZEPAM 5 MG TAB PO PRN (15:44)
[2018-06-23] MEDS: ceFAZolin(*) 1 GM VIAL 1 GM in NS(*) 0.9% 100 ML ADDVANT BAG 100 ML IVPB SCH (17:10)
[2018-06-23] MEDS: CELECOXIB 200 MG CAP PO SCH (17:10)
[2018-06-24 01:00] VITALS: BP 105/68
[2018-06-24] MEDS: ceFAZolin(*) 1 GM VIAL 1 GM in NS(*) 0.9% 100 ML ADDVANT BAG 100 ML IVPB SCH ×2 (01:06→09:39)
[2018-06-24] MEDS: APAP/HYDROCODONE 325/7.5 TAB PO PRN ×5 (01:10→20:32)
[2018-06-24] MEDS: PROMETHAZINE 25 MG/ML 1 ML AMP IVP PRN (01:11)
[2018-06-24] MEDS: LEVOTHYROXINE SOD 0.075 MG TAB PO SCH (05:21)
[2018-06-24 07:20] VITALS: BP 117/76
--- NOTE | 2018-06-24 08:58 | Hospitalist Progress Note ---
Subjective Progress Notes Subjective She was admitted after knee replacement. She has complaints of pain to the surgical site, but otherwise she is doing well. Patient Complains of: Cardiovascular: No: Chest Pain Respiratory: No: Shortness of Breath Physical Exam Vital Signs Date Time Temp Pulse Resp B/P (MAP) Pulse Ox O2 Delivery O2 Flow Rate FiO2 06/24/18 07:20 97.9 82 14 117/76 (90) 95 06/24/18 01:00 Nasal Cannula 1.0 Intake and Output 06/24/18 07:00 Intake Total 3700 ml Balance 3700 ml Intake Oral 1100 ml IV Total 2600 ml # Voids 4 General Appearance: Alert, Awake, No Acute Distress, Afebrile Neuro: No Gross deficits Cardiovascular: Regular Rate and Rhythm Respiratory: No Respiratory Distress, Clear to Auscultation GI: Soft and Non-Tender Extremities: Warm, Perfused Psych: Alert & Oriented X3, Appropriate Mood & Affect Assessment and Plan Problems: (1) Status post left knee replacement Status: Acute Assessment & Plan: Followed by Dr. Chavira. She will be placed on Aspirin for DVT prophylaxis. She has no history of DVT or PE. (2) Hypertension Status: Chronic Assessment & Plan: She is on chronic treatment with Losartan. This has been restarted with hold parameters. (3) Hypothyroidism Status: Chronic Assessment & Plan: She is on chronic treatment with Levothyroxine. Exam Sepsis Risk: No Definite Risk Problem Qualifiers (1) Hypertension: Hypertension type: essential hypertension Qualified Codes: I10 - Essential (primary) hypertension IAN VARGAS LABEL PRINTER Jun 24, 2018 08:58
[2018-06-24] MEDS: LOSARTAN POTASSIUM 50 MG TAB PO SCH (09:00)
[2018-06-24] MEDS: CELECOXIB 200 MG CAP PO SCH ×2 (09:38→16:48)
[2018-06-24] MEDS: DIAZEPAM 5 MG TAB PO PRN ×3 (09:39→22:53)
[2018-06-24] MEDS: ASPIRIN 325 MG TAB PO SCH (09:39)
[2018-06-24 11:44] VITALS: BP 131/73
[2018-06-24 14:13] VITALS: Ht 170.2 cm; Wt 85.7 kg
[2018-06-24 16:00] VITALS: BP 134/73
--- NOTE | 2018-06-24 16:49 | NUR ---
Physical Therapy Impression Pt has met distance ambulation goal and has address platform step to enter home. Pt agreeable to address stairs again tomorrow to complete stairs in succession with rail. Physical Therapy Goals 1. Pt to be CGA/Min assist for supine<>Sit trnsfrs 2. Pt to be SBA/CGA for sit to/from stand transfers 3. Pt to ambulate x 100' with FWW and SBA/Modified indep 4. Pt to hue up/down 4 steps x 2 reps with rail and CGA/Min assist. Patient's Goals
[2018-06-24 23:42] VITALS: BP 128/74
[2018-06-25] MEDS: APAP/HYDROCODONE 325/7.5 TAB PO PRN ×2 (03:32→08:08)
[2018-06-25] MEDS: LEVOTHYROXINE SOD 0.075 MG TAB PO SCH (05:16)
[2018-06-25] MEDS: DIAZEPAM 5 MG TAB PO PRN (05:17)
[2018-06-25] MEDS ORDERED: HYDR-389 PO (07:34)
[2018-06-25] MEDS ORDERED: ASPI-757 PO (07:35)
[2018-06-25 07:55] VITALS: BP 126/83
[2018-06-25] MEDS: LOSARTAN POTASSIUM 50 MG TAB PO SCH (08:05)
[2018-06-25] MEDS: ASPIRIN 325 MG TAB PO SCH (08:08)
[2018-06-25] MEDS: CELECOXIB 200 MG CAP PO SCH (08:08)
--- NOTE | 2018-06-25 10:04 | Hospitalist Progress Note ---
Subjective Progress Notes Subjective She was admitted s/p knee replacement. She has no complaints this morning. She would like to go home today. Patient Complains of: Cardiovascular: No: Chest Pain Respiratory: No: Shortness of Breath Physical Exam Vital Signs Date Time Temp Pulse Resp B/P (MAP) Pulse Ox O2 Delivery O2 Flow Rate FiO2 06/25/18 08:36 89 06/25/18 07:55 97.7 88 20 126/83 (97) Room Air 06/24/18 23:42 1.0 Intake and Output 06/25/18 07:00 Intake Total 1670 ml Balance 1670 ml Intake Oral 1670 ml # Voids 3 General Appearance: Alert, Awake, No Acute Distress, Afebrile Neuro: No Gross deficits Cardiovascular: Regular Rate and Rhythm Respiratory: No Respiratory Distress, Clear to Auscultation GI: Soft and Non-Tender Psych: Alert & Oriented X3, Appropriate Mood & Affect Assessment and Plan Problems: (1) Status post left knee replacement Status: Acute Assessment & Plan: Followed by Dr. Chavira. She will be placed on Aspirin for DVT prophylaxis. She has no history of DVT or PE. (2) Hypertension Status: Chronic Assessment & Plan: She is on chronic treatment with Losartan. This was restarted with hold parameters. (3) Hypothyroidism Status: Chronic Assessment & Plan: She is on chronic treatment with Levothyroxine. Exam Sepsis Risk: No Definite Risk Problem Qualifiers (1) Hypertension: Hypertension type: essential hypertension Qualified Codes: I10 - Essential (primary) hypertension IAN VARGAS Jun 25, 2018 10:04
--- NOTE | 2018-06-25 10:27 | NUR ---
Physical Therapy Impression Pt has met mobility goals with the exception of stairs in succession. Pt has addressed platform step x 2 reps without difficulty. Pt declines to address stairs in succession, stating that she is not concerned regarding her ability and would like to conserve her energy for transfer home today. Physical Therapy Goals 1. Pt to be CGA/Min assist for supine<>Sit trnsfrs 2. Pt to be SBA/CGA for sit to/from stand transfers 3. Pt to ambulate x 100' with FWW and SBA/Modified indep 4. Pt to hue up/down 4 steps x 2 reps with rail and CGA/Min assist. Patient's Goals
== END 2018-06-25 07:37 | disposition home or self-care (01) ==
LOC: OR 01:46 → MED 11:25
PROVIDERS: ADMIT Orthopaedic Surgery; ATTEND Orthopaedic Surgery
DX: M17.12 Unilateral primary osteoarthritis, left knee (principal); I10 Essential (primary) hypertension; Z79.01 Long term (current) use of anticoagulants; E03.9 Hypothyroidism, unspecified
CPT/HCPCS: 27447; 36415; 73560; 85610; 86850; 86900; 86901; 97116; 97161; 97530; A9270; C1713; C1776; G0378; J0690; J1100; J2001; J2250; J2370; J2405; J2550; J2704; J3010; J3370; J3490; J7050; J7060

== ENCOUNTER → 2018-08-28 | Outpatient (CLI) | payer MEDICARE, OTHER ==
[2018-06-24 14:13] VITALS: BMI 29.6
[~2018-08-28] MED LIST changes: -ACETAMINOPHEN 500 MG TAB PO ONE; -CELECOXIB 200 MG CAP PO ONE; +HYDR-389 PO; -PREGABALIN 150 MG CAPSULE PO ONE; -ceFAZolin(*) 2GM/D5W 50ML 50 ML IVPB ONE
--- NOTE | 2018-08-28 11:52 | RADIOLOGY IMAGING REPORT ---
FACILITY: [facility] [place] PATIENT NAME: Melissa Fisher : 1950 MR: [id number] V: [id number] EXAM DATE: ORDERING PHYSICIAN: MARYLOU WILLIAM TECHNOLOGIST: Location: [facility] [place] Patient: Melissa Fisher : 1950 Visit/Account:[id number] Date of Sevice: 08/28/2018 Exam type: US VENOGRAM EXTREMITY, BILATERAL History: Leg pain and swelling, possible lump posterior right knee Comparison: February 09, 2018. Findings: The lower extremity veins were imaged bilaterally including the common femoral veins greater saphenou s vein superficial femoral vein popliteal veins posterior tibial veins peroneal veins and anterior ti bial veins revealing no evidence of intraluminal thrombi. The veins were compressible and demonstrat ed augmentation. IMPRESSION: 1. No sonographic evidence DVT involving the lower extremity veins bilaterally An attempt was made to call the results to MARYLOU WILLIAM's retirement assistant Juana at 08/28/2018 11:43 AM. Ho wever there was no answer. Report Dictated By: Patricia Russ MD at 08/28/2018 11:41 AM Report E-Signed By: Patricia Russ MD at 08/28/2018 11:47 AM WSN:[email or web address]
== END ==
LOC: US 09:48
PROVIDERS: ATTEND Orthopaedic Surgery
DX: R22.43 Localized swelling, mass and lump, lower limb, bilateral (principal); M79.604 Pain in right leg; M79.605 Pain in left leg
CPT/HCPCS: 93970